=== PATIENT | male | born 1970 | race Asian ===

== ENCOUNTER 2016-12-22 14:51 | Emergency (ER) | payer OTHER ==
[~2016-12-22] VITALS: Ht 185.4 cm; Wt 74.8 kg
[2016-12-22 15:04] VITALS: BP 133/94; TEMP 98.3
== END 2016-12-22 15:22 | disposition home or self-care (01) ==
LOC: ED 14:51
DX: M25.512 Pain in left shoulder (principal)
CPT/HCPCS: 99281

== ENCOUNTER 2021-03-01 18:51 | Emergency (ER) | payer OTHER ==
[~2021-03-01] VITALS: Ht 185.4 cm; Wt 83.9 kg
[2021-03-01 22:25] VITALS: BP 160/108; TEMP 97.5
== END 2021-03-01 22:30 | disposition home or self-care (01) ==
LOC: ED 18:51
DX: J32.8 Other chronic sinusitis (principal); B97.89 Other viral agents as the cause of diseases classified elsewhere; I10 Essential (primary) hypertension; Z91.14 Patient's other noncompliance with medication regimen
CPT/HCPCS: 99282